=== PATIENT | female | born 1955 ===

== ENCOUNTER 2021-07-06 06:00 | Day surgery (SDC) | payer OTHER ==
[~2021-07-06 06:00] MED LIST: ASA81 MG PO; GLUMETZA500 MG PO; LASIX20 MG PO; LOPID PO; OMEPRAZOLE20 MG PO; SINGULAIR10 MG PO; TRENTAL PO
[2021-07-06] MEDS ORDERED: PERCOCET 5-3251 EACH PO (08:00)
[2021-07-06] MEDS ORDERED: COLACE100 MG PO (08:01)
== END 2021-07-06 14:00 | disposition home or self-care (01) ==
LOC: CIR.AMB 06:00
PROVIDERS: ATTEND Surgery
DX: D04.5 Carcinoma in situ of skin of trunk (principal); K64.4 Residual hemorrhoidal skin tags; I10 Essential (primary) hypertension; J43.9 Emphysema, unspecified; I69.392 Facial weakness following cerebral infarction; E66.01 Morbid (severe) obesity due to excess calories; I87.2 Venous insufficiency (chronic) (peripheral)

== ENCOUNTER 2021-07-17 12:44 | Emergency (ER) | payer OTHER ==
[~2021-07-17] VITALS: Ht 154.9 cm; Wt 114.3 kg
[~2021-07-17 12:44] MED LIST changes: +COLACE100 MG PO; +PERCOCET 5-3251 EACH PO
[2021-07-17] MEDS ORDERED: VERELAN240 MG (13:19)
[2021-07-17] MEDS ORDERED: COZAAR100 MG PO (13:20)
== END 2021-07-17 17:38 | disposition home or self-care (01) ==
LOC: ER 12:44
DX: T81.31XA Disruption of external operation (surgical) wound, not elsewhere classified, initial encounter (principal); K64.1 Second degree hemorrhoids; E11.9 Type 2 diabetes mellitus without complications; Z79.84 Long term (current) use of oral hypoglycemic drugs; I10 Essential (primary) hypertension